=== PATIENT | male | born 1980 | race Hispanic/Latino ===

== ENCOUNTER → 2017-04-24 | Outpatient (CLI) | payer OTHER ==
--- NOTE | 2017-04-24 15:32 | REP ---
UNILATERAL LEFT RIBS, AP CHEST: HISTORY: Contusion. The lungs are clear. The heart is normal in size. The pulmonary vasculature is normal in appearance. The bony structure is intact. IMPRESSION: No acute disease. Signed by Leodan Slade MD 04/24/2017 03:49 P
== END ==
LOC: M WUC 14:43
PROVIDERS: ATTEND Physician Assistant
DX: S20.212A Contusion of left front wall of thorax, initial encounter (principal); X58.XXXA Exposure to other specified factors, initial encounter; Y92.89 Other specified places as the place of occurrence of the external cause; Y93.89 Activity, other specified; Y99.8 Other external cause status

== ENCOUNTER 2018-03-11 17:26 | Emergency (ER) | payer OTHER ==
[2018-03-11] MEDS: PERCOCET 5MG/325MG TAB PO (17:59)
== END 2018-03-11 18:15 | disposition home or self-care (01) ==
LOC: M ED 17:26
DX: S02.5XXA Fracture of tooth (traumatic), initial encounter for closed fracture (principal); X58.XXXA Exposure to other specified factors, initial encounter; Y92.89 Other specified places as the place of occurrence of the external cause
CPT/HCPCS: 99283